=== PATIENT | female | born 1990 | race Caucasian/White ===

== ENCOUNTER 2016-12-28 14:57 | Emergency (ER) | payer OTHER ==
[~2016-12-28 14:57] MED LIST: CIPRO PO; NO MEDICATIONS; PYRIDIUM PO
== END 2016-12-28 16:35 | disposition home or self-care (01) ==
LOC: CED 14:57
DX: R55 Syncope and collapse (principal); T40.1X1A Poisoning by heroin, accidental (unintentional), initial encounter; F17.200 Nicotine dependence, unspecified, uncomplicated
CPT/HCPCS: 99284